=== PATIENT | male | born 1985 | race Caucasian/White ===

== ENCOUNTER 2017-08-30 00:27 | Emergency (ER) | payer SELFPAY ==
--- NOTE | 2017-08-30 00:50 | ED Physician Documentation ---
PD HPI LOWER EXT INJURY - Stated complaint Stated Complaint: L foot PX/Injury - Chief complaint Chief Complaint: Trauma Ext - History obtained from History obtained from: Patient, Police - History of Present Illness PD HPI LOW EXT INJURY LOCATION: Left, Foot Worsened by: Moving, Palpating Associated symptoms: Swelling, Discolored Similar symptoms before: Has not had sx before Recently seen: Not recently seen - Additional information Additional information: Patient is a 32 year old male with no significant past medical history who is presenting to the emergency department for foot pain and swelling. patient was brought in by police for a legal blood draw and stated that he also wanted his foot examined. Patient stated that he had pain and a bruise on his left lateral foot but didn't know when or how the injury occurred. Review of Systems Constitutional: reports: Reviewed and negative Eyes: reports: Reviewed and negative Ears: reports: Reviewed and negative Nose: reports: Reviewed and negative Throat: reports: Reviewed and negative Cardiac: reports: Reviewed and negative Respiratory: reports: Reviewed and negative GI: reports: Reviewed and negative : reports: Reviewed and negative Musculoskeletal: reports: Extremity pain, Extremity swelling Neurologic: denies: Focal weakness, Numbness Immunocompromised: denies: Immunocompromised PD PAST MEDICAL HISTORY - Past Medical History Past Medical History: No - Past Surgical History Past Surgical History: No - Present Medications Home Medications: Ambulatory Orders Medication Instructions Recorded Confirmed No Known Home Medications [No 08/30/17 08/30/17 Known Home Medications] - Allergies Allergies/Adverse Reactions: Allergies Allergy/AdvReac Type Severity Reaction Status Date / Time No Known Drug Allergies Allergy Verified 08/30/17 00:29 - Social History Does the pt smoke?: No Smoking Status: Never smoker Does the pt drink ETOH?: Yes Does the pt have substance abuse?: No Substance Use and Type: Marijuana - Immunizations Immunizations are current?: Yes - POLST Patient has POLST: No PD ED PE NORMAL - Vitals Vital signs reviewed: Yes - General General: Alert and oriented X 3, No acute distress - HEENT HEENT: Atraumatic, PERRL - Neck Neck: No bony TTP - Cardiac Cardiac: RRR - Respiratory Respiratory: No respiratory distress - Abdomen Abdomen: Non distended - Neuro Neuro: Alert and oriented X 3, No motor deficit, No sensory deficit, Normal speech - Psych Psych: Normal mood, Normal affect PD ED PE EXPANDED - Extremities Extremities: Left foot (tenderness and ecchymosis of left lateral foot) Results - Vitals Vitals: Vital Signs - 24 hr 08/30/17 00:29 Temperature 37.3 C Heart Rate 89 Respiratory 22 Rate Blood Pressure 154/97 H O2 Saturation 96 Oxygen O2 Source Room air - Rads (name of study) foot x-ray Radiology: EMP read indepedently (fith metatarsal fracture) PD MEDICAL DECISION MAKING - ED course Complexity details: reviewed old records, reviewed results, re-evaluated patient , considered differential, d/w patient ED course: Patient was seen and examined at bedside. blood draw was performed and patient was sent for imaging. when patient returned the results were reviewed. there was a fracture of the 5th metatarsal. Patient was placed in a walking boot and given orthopedic follow up. Departure - Departure Disposition: 01 Home, Self Care Clinical Impression: Fracture of fifth metatarsal bone of left foot Condition: Good Instructions: ED Fx Foot Follow-Up: Shelton Holman MD [Provider Admit Priv/Credential] - Within 3 Days Comments: Your symptoms today are being caused by a fracture in your left foot. it can take up to 8 weeks to heal. you should wear the boot for comfort. You should take tylenol for pain and use ice and elevation for swelling. You should follow up with Dr. Holman, for further evaluation and care.
--- NOTE | 2017-08-30 01:36 | XRAY Preliminary Report ---
Exam: XR Foot 3 View LT IMPRESSION: There is a transverse fracture at the base of the fifth metatarsal. [facility] SITE ID: [id number]
--- NOTE | 2017-08-30 01:39 | XRAY Report ---
EXAM: LEFT FOOT RADIOGRAPHY EXAM DATE: 08/30/2017 01:05 AM. CLINICAL HISTORY: Lateral foot pain and bruising. COMPARISON: None. TECHNIQUE: 3 views. FINDINGS: Bones: There is a transverse fracture at the base of the fifth metatarsal. Small plantar calcaneal sp ur noted. Joints: No dislocation. Mild first MTP degenerative joint disease. Soft Tissues: Mild bilateral soft tissue swelling. IMPRESSION: There is a transverse fracture at the base of the fifth metatarsal. [facility] Referring Provider Line: [phone] SITE ID: [id number]
[2017-08-30 01:51] VITALS: BP 139/90
== END 2017-08-30 01:32 | disposition home or self-care (01) ==
LOC: ED 00:27
DX: S92.352A Displaced fracture of fifth metatarsal bone, left foot, initial encounter for closed fracture (principal); X58.XXXA Exposure to other specified factors, initial encounter; Y93.89 Activity, other specified
CPT/HCPCS: 99283

== ENCOUNTER 2017-08-30 00:34 | Outpatient (CLI) | payer OTHER | END 2017-08-30 00:35 | disposition home or self-care (01) | LOC: LAB 00:34 | PROVIDERS: ATTEND Pathology Blood Banking & Transfusion Medicine | DX: Z01.89 Encounter for other specified special examinations (principal) ==